=== PATIENT | male | born 1980 | race Caucasian/White ===

== ENCOUNTER 2024-07-26 04:33 | Emergency (ER) | payer MEDICAID ==
[~2024-07-26] VITALS: Ht 188 cm; Wt 86.4 kg
[2024-07-26 04:45] VITALS: BP 127/73; PULSE 74; RESP 16; TEMP 97.7; O2SAT 97
== END 2024-07-26 06:16 | disposition home or self-care (01) ==
LOC: EMS 04:37
DX: S80.212A Abrasion, left knee, initial encounter (principal); V89.2XXA Person injured in unspecified motor-vehicle accident, traffic, initial encounter; Y93.89 Activity, other specified; Y92.89 Other specified places as the place of occurrence of the external cause; Y99.8 Other external cause status
CPT/HCPCS: 72040; 99283